=== PATIENT | female | born 1985 | race Caucasian/White ===

== ENCOUNTER 2020-10-11 12:50 | Emergency (ER) | payer OTHER, SELFPAY ==
--- NOTE | ~2020-10-11 | XR_ITS ---
XR lumbar spine 2-3V DATE: 10/11/2020 13:18 INDICATION: Right low back pain. No injury. TECHNIQUE: AP, lateral, coned lateral lumbosacral views COMPARISON: None FINDINGS: The lumbar vertebrae are normally aligned. No fracture or bone destruction or spondylolisth esis. The lumbar pedicles are intact. Lumbar levels as well as appear relatively well preserved. The sacroiliac joints are normal. IMPRESSION: Negative Reviewed, dictated and finalized at location A. IMPRESSION: Negative
[2020-10-11 12:52] VITALS: BP 145/86; PULSE 87; RESP 16; TEMP 37.4; O2SAT 99
--- NOTE | 2020-10-11 13:52 | ED.GENADULT ---
HPI - General Adult General Chief complaint: Back Pain/Injury Stated complaint: back pain Time Seen by Provider: 10/11/20 13:20 Source: patient and RN notes reviewed Mode of arrival: ambulatory Limitations: no limitations History of Present Illness HPI narrative: Patient a 35-year-old female who presents with lower back pain that began after lifting an object and feeling a strain in the lower back patient has had persistent pain for over a day does not take anything for symptoms presents in no distress does appear uncomfortable denies any recent illness or other complaints and is otherwise in the room in no distress upon arrival denies similar occurrence in the past Related Data Allergies Allergy/AdvReac Type Severity Reaction Status Date / Time No Known Allergies Allergy Verified 10/11/20 13:08 Review of Systems Review of Systems: All systems reviewed & are unremarkable except as noted in HPI and below PMFSH Social History Social History (Updated 10/11/20 @ 13:53 by Octaviano Christy PA-C) Smoking status: Current every day smoker Exam Narrative: Exam Narrative: GENERAL: Well-appearing, well-nourished, and in no acute distress. HEAD: Normocephalic, atraumatic. EYES: PERRLA and EOMI. ENT: Nares clear, no rhinorrhea or epistaxis. Mucous membranes moist. CHEST: Clear to auscultation. No respiratory distress. No wheezes rales or rhonchi HEART: Regular rate and rhythm. No murmur heard. Normal peripheral pulses. ABDOMEN: Soft, nontender, nondistended EXTREMITIES: Normal range of motion. No edema. Lower lumbar tenderness to palpation no deformities noted SKIN: Warm, dry, no rash. NEURO: No focal deficits. Alert and oriented x3. Cranial nerves II through XII grossly intact PSYCH: Normal mood and affect. Course Course Emergency Course: Patient in the room no distress will be treated with medications with outpatient follow-up for her low back pain no concerning findings on evaluation given a shot of Toradol prior to discharge Vital Signs Vital signs: Vital Signs Temperature 99.3 F 10/11/20 12:52 Pulse Rate 87 10/11/20 12:52 Respiratory Rate 16 10/11/20 12:52 Blood Pressure 145/86 H 10/11/20 12:52 Pulse Oximetry 99 10/11/20 12:52 Temperature 99.3 F 10/11/20 12:52 Pulse Rate 87 10/11/20 12:52 Respiratory Rate 16 10/11/20 12:52 Blood Pressure 145/86 H 10/11/20 12:52 Pulse Oximetry 99 10/11/20 12:52 Medical Decision Making MDM Narrative Medical decision making narrative: Patients pain is positional in nature and localized to back without signs of cord compression or cauda equina based on neurological exam, skeletal exam and history. No fever or other significant factors to suggest osteomyelitis or spinal epidural abscess. No symptoms or signs to suggest pain is referred from abdominal or / cardiopulmonary sources. No pulsatile masses noted on exam. Patient ambulates with steady gait and is stable for outpatient management given case findings. Vital Signs Vital Signs: Vital Signs Temperature 99.3 F 10/11/20 12:52 Pulse Rate 87 10/11/20 12:52 Respiratory Rate 16 10/11/20 12:52 Blood Pressure 145/86 H 10/11/20 12:52 Pulse Oximetry 99 10/11/20 12:52 Temperature 99.3 F 10/11/20 12:52 Pulse Rate 87 10/11/20 12:52 Respiratory Rate 16 10/11/20 12:52 Blood Pressure 145/86 H 10/11/20 12:52 Pulse Oximetry 99 10/11/20 12:52 Imaging Data Radiologist's impression: ITS Impressions Lumbar Spine X-Ray 10/11/20 13:21 IMPRESSION: Negative Discharge Plan Discharge Clinical Impression: Strain of lumbar region Patient Disposition: Home, Self-Care Condition: Stable Instructions: Antibiotic Form, Acute Low Back Pain (ED) Additional Instructions: Medications as needed and prescribed. Limit lifting and bending. You may apply heat or cold to the area as needed. Follow up with your doctor for further care in the next 7 to
[2020-10-11] MEDS: KETOROLAC (*BKC) 60 MG/2 ML VIAL IM (13:56)
== END 2020-10-11 14:26 | disposition home or self-care (01) ==
PROVIDERS: Emergency Provider Emergency Medicine; PCP Family Medicine
DX: S39.012A Strain of muscle, fascia and tendon of lower back, initial encounter (principal); F17.200 Nicotine dependence, unspecified, uncomplicated; X50.0XXA Overexertion from strenuous movement or load, initial encounter
CPT/HCPCS: 72100; 96372; 99283; J1885

== ENCOUNTER 2020-11-30 11:34 | Emergency (ER) | payer OTHER, SELFPAY ==
--- NOTE | ~2020-11-30 | XR_ITS ---
EXAMINATION: XR chest 2V DATE: 11/30/2020 14:37 INDICATION: Dizziness TECHNIQUE: Frontal and lateral views of the chest are obtained COMPARISON: 10/01/2008 FINDINGS: The lungs are free of acute opacities. There is no pleural effusion or pneumothorax. The ca rdiomediastinal silhouette is normal. The visualized bones and soft tissues are unremarkable. IMPRESSION: 1. No acute cardiopulmonary abnormality. Reviewed, dictated and finalized at location B.
--- NOTE | ~2020-11-30 | CT_ITS ---
EXAMINATION: CT brain wo con EXAM DATE: 11/30/2020 16:34 INDICATION: Dizziness for one day. Vertigo. TECHNIQUE: Spiral CT of the head was performed without contrast. Axial, coronal and sagittal images were reviewed. The dose-length product (DLP) for this examination was 605.33 mGy-cm. The exposure w as tailored according to patient size, and iterative reconstruction (ASIR) was used as additional dos e reduction technique. There is no prior study for comparison. FINDINGS: There is no acute intraparenchymal hemorrhage. No evidence of intraparenchymal brain mass lesion. No evidence of acute infarction. There is no mass effect or midline shift. The ventricles are normal in size. There are no extra-axial collections. There are no acute calvarial fractures. T he orbits are unremarkable. Soft tissue is unremarkable. The visualized sinuses and mastoid air waylon ls are well aerated. IMPRESSION: 1. Normal head CT examination. Reviewed, dictated and finalized at location A.
[2020-11-30 12:08] VITALS: BP 143/97; PULSE 59; RESP 16; TEMP 36.6; O2SAT 100
--- NOTE | 2020-11-30 14:30 | ECG_ITS ---
Measurements Intervals Halls Rate: 56 P: 59 IL: 133 QRS: 74 QRSD: 86 T: 59 QT: 405 QTc: 393 Interpretive Statements SINUS BRADYCARDIA BORDERLINE ECG Electronically Signed On 11-30-2020 19:04:50 CDT by Tye Bermeo D.O.
[2020-11-30 14:42] VITALS: BP 128/84; PULSE 60; RESP 18; TEMP 36.4; O2SAT 100
--- NOTE | 2020-11-30 14:49 | PC.NURSE ---
Pt has had her tubes tied
[2020-11-30 14:56] LABS: Basophils Percent Auto 0.3 % (0.2-1.2); Eosinophils Percent Auto 0.7 % (0-4.4); Hematocrit 42.8 % (37.0-47.0); Immature Granulocyte Absolute 0.02 K/mm3 (0.00-0.031); Immature Granulocyte Percent A 0.3 % (0-0.5); Lymphocytes Absolute Auto 1.27 K/mm3 (0.9-3.2); Lymphocytes Percent Auto 20.7 % (18.3-44.2); Mean Corpuscular HGB Conc 32.7 g/dl (32-36); Mean Corpuscular Hemoglobin 31.3 pg (26-34); Mean Corpuscular Volume 95.5 fl (80-100); Mean Platelet Volume 10.6 fl (7.4-10.4); Monocytes Absolute Auto 0.3 K/mm3 (0.1-0.6); Monocytes Percent Auto 4.7 % (2.6-8.5); Neutrophils Absolute Auto 4.5 K/mm3 (1.3-6.7); Neutrophils Percent Auto 73.3 % (45.5-73.1); Platelet Count Result 177 k/mm3 (150-375); Red Blood Count 4.48 M/mm3 (4.2-5.4); Red Cell Distribution Width 11.9 % (11.5-14.5); White Blood Count 6.1 K/mm3 (4.5-10.0)
[2020-11-30 15:05] LABS: Anion Gap 4 mmol/L (8-16); Blood Urea Nitrogen 11 mg/dL (7-17); Calcium 9.9 mg/dL (8.4-10.2); Carbon Dioxide 31 mmol/L (22-30); Chloride 103 mmol/L (98-107); Estimated CRCL calculation 84 ml/min; Estimated Glomerular Filt Rate > 60; Glucose 129 mg/dL (65-110); Potassium 4.3 mmol/L (3.4-5.0); Sodium 138 mmol/L (137-145)
[2020-11-30 15:45] VITALS: BP 154/93; PULSE 57; RESP 13; TEMP 36.7; O2SAT 100
[2020-11-30 16:08] VITALS: BP 152/97; BP 154/93; PULSE 59; PULSE 60
[2020-11-30 16:09] VITALS: BP 150/91; PULSE 59
--- NOTE | 2020-11-30 16:19 | ED.DIZZY ---
HPI - Dizziness General Chief Complaint: Dizziness Stated Complaint: dizziness, headache Time Seen by Provider: 11/30/20 15:48 Source: patient Mode of arrival: ambulatory Limitations: no limitations History of Present Illness HPI Narrative: Patient is a 35 years old white female presented to the ED with the dizziness. Patient got out of bed yesterday morning and the room started spinning around associated with nausea. Lasted for few minutes and then resolved. The same episodes occurred this morning but lasted for hours. Currently patient is asymptomatic. Complaining of slight headache. Patient is not vaccinated with COVID-19. She denies any fever, chills, chest pain, shortness of breath, focal deficit. Related Data Allergies Allergy/AdvReac Type Severity Reaction Status Date / Time No Known Allergies Allergy Verified 11/30/20 16:03 Review of Systems Review of Systems: CONSTITUTIONAL: Denies fever, chills, or sweats. EYES: Denies visual changes, redness, or discharge. ENT: Denies rhinorrhea, congestion, sore throat, or otalgia. CARDIOVASCULAR: Denies chest pain, palpitations, or edema. RESPIRATORY: Denies cough or dyspnea. GASTROINTESTINAL: Denies abdominal pain, nausea, vomiting, or diarrhea. GENITOURINARY: Denies dysuria or hematuria. SKIN: Denies rash or itching. MUSCULOSKELETAL: Denies back pain, joint pain, or myalgia. NEUROLOGIC: Denies headache, numbness, or weakness. PSYCHIATRIC: Denies anxiety or depression. PMFSH Social History Social History Smoking status: Current every day smoker Exam Narrative: General appearance: Well-developed, well-nourished Skin: Normal color Head: Normocephalic, nontraumatic Eyes: Clear conjunctiva ENT: Oropharynx normal, ears normal, nose normal Neck: Supple, nontender Chest and respiratory: Airway patent, no respiratory distress, no accessory muscle use Heart: Regular rate/rhythm Abdomen: Soft, nontender, no organomegaly, quiet bowel sounds Vascular: Normal peripheral pulses, normal capillary refill. Musculoskeletal: Normal range of motion, nontender back Neurologic: Alert and oriented ?3, TE[employer]ETING [employer] is normal as tested, no gross motor deficit Course Course Emergency Course: Resolved Vital Signs Vital signs: Vital Signs Temperature 36.6 C 11/30/20 12:08 Pulse Rate 59 L 11/30/20 12:08 Respiratory Rate 16 11/30/20 12:08 Blood Pressure 143/97 H 11/30/20 12:08 Pulse Oximetry 100 11/30/20 12:08 Temperature 36.7 C 11/30/20 15:45 Pulse Rate 59 L 11/30/20 16:09 Respiratory Rate 13 11/30/20 15:45 Blood Pressure 150/91 H 11/30/20 16:09 Pulse Oximetry 100 11/30/20 15:45 MDM - Dizziness MDM Narrative Medical decision making narrative: Benign positional vertigo is my concern. Labs, CT head ordered. Currently patient is asymptomatic. Work-up showed no significant findings. Patient will be discharged on Antivert and Zofran. Also to be off work for the next 48 hours. Differential Diagnosis Differential diagnosis: Likely benign paroxysmal positional vertigo and cerebrovascular accident Lab Data Result diagrams: 11/30/20 14:41 11/30/20 14:41 Labs: Lab Results 11/30/20 11/30/20 Range/Units 14:41 14:41 WBC 6.1 (4.5-10.0) K/mm3 RBC 4.48 (4.2-5.4) M/mm3 Hgb 14.0 (12.0-15.0) g/dL Hct 42.8 (37.0-47.0) % MCV 95.5 (80-100) fl MCH 31.3 (26-34) pg MCHC 32.7 (32-36) g/dl RDW 11.9 (11.5-14.5) % Plt Count 177 (150-375) k/mm3 MPV 10.6 H (7.4-10.4) fl Immature Gran % (Auto) 0.3 (0-0.5) % Neut % (Auto) 73.3 H (45.5-73.1) % Lymph % (Auto) 20.7 (18.3-
[2020-11-30 17:43] LABS: Alanine Aminotransferase 10 U/L (4-35); Albumin Level 4.3 g/dL (3.5-5.1); Alkaline Phosphatase 49 U/L (38-126); Aspartate Amino Transferase 29 U/L (14-36); Bilirubin,Total 0.6 mg/dL (0.2-1.3)
[2020-11-30] MEDS: ONDANSETRON HCL ODT 4 MG TABLET PO (17:45)
[2020-11-30] MEDS: MECLIZINE HCL 25 MG TABLET PO (17:48)
[2020-11-30 17:54] VITALS: BP 139/87; PULSE 57; RESP 16; O2SAT 100
[2020-11-30] MEDS: KETOROLAC (*BKC) 60 MG/2 ML VIAL IM (17:54)
== END 2020-11-30 17:55 | disposition home or self-care (01) ==
PROVIDERS: Physician Assistant; Emergency Provider Emergency Medicine; PCP Family Medicine
DX: H81.10 Benign paroxysmal vertigo, unspecified ear (principal); F17.200 Nicotine dependence, unspecified, uncomplicated; R00.1 Bradycardia, unspecified
CPT/HCPCS: 36415; 70450; 71046; 80048; 80076; 85025; 93005; 96372; 99284; A9270; J1885

== ENCOUNTER 2020-12-10 08:39 | Emergency (ER) | payer OTHER, SELFPAY ==
[2020-12-10 08:54] VITALS: BP 114/82; PULSE 71; RESP 18; TEMP 37; O2SAT 100
--- NOTE | 2020-12-10 09:19 | ED.FEMALEGU ---
HPI - Female Genitourinary General Chief complaint: Urogenital-Female Stated complaint: UTI Source: patient, RN notes reviewed and old records reviewed Mode of arrival: ambulatory Limitations: no limitations History of Present Illness HPI Narrative: 35-year-old female who presents to [facility] with complaints of urinary burning, pain, frequency of urination, for the past 3 days. Patient reports that she has noted some blood when she wipes a couple of times since symptoms started. Patient has no fevers, chills, or sweats or any nausea or vomiting, denies any flank pain, but has some suprapubic tenderness.Patient denies any vaginal discharge or itching or any concern for STD exposure. MD elicited complaint: dysuria Related Data Allergies Allergy/AdvReac Type Severity Reaction Status Date / Time No Known Allergies Allergy Verified 11/30/20 16:03 Review of Systems Review of Systems: CONSTITUTIONAL: Denies fever, chills, or sweats. EYES: Denies visual changes, redness, or discharge. ENT: Denies rhinorrhea, congestion, sore throat, or otalgia. CARDIOVASCULAR: Denies chest pain, palpitations, or edema. RESPIRATORY: Denies cough or dyspnea. GASTROINTESTINAL: suprapubic abdominal pain,no nausea, vomiting, or diarrhea. GENITOURINARY: Positive for dysuria or hematuria. SKIN: Denies rash or itching. MUSCULOSKELETAL: Denies back pain, joint pain, or myalgia. NEUROLOGIC: Denies headache, numbness, or weakness. PSYCHIATRIC: Denies anxiety or depression. All systems reviewed & are unremarkable except as noted in HPI and below PMFSH Past Medical History Medical History (Updated 12/11/20 @ 09:46 by Sana Winston NP) UTI (urinary tract infection) Vertigo Surgical History Surgical History (Updated 12/11/20 @ 09:46 by Sana Winston NP) H/O LEEP Previous section Tubal ligation status Family History Family History (Updated 12/11/20 @ 09:45 by Sana Winston NP) Father Polycystic kidney disease Hypertension Grandparent Diabetes mellitus FH: lung cancer Mother A-fib Social History Social History (Updated 12/10/20 @ 09:38 by Sana Winston NP) Smoking status: Current every day smoker Alcohol intake: never Substance use: never Living arrangements: with family Gender identity (if verbalized by the patient): Female Comments At time of signature, agree with nursing past medical, surgical, social and family history. There is no relevant family history pertinent to the presenting complaint Exam Narrative: GENERAL: Well-appearing, well-nourished, and in no acute distress. HEAD: Normocephalic, atraumatic. EYES: PERRLA and EOMI. ENT: Nares clear, no rhinorrhea or epistaxis. Mucous membranes moist.TM's normal throat pink with no lesions or exudates,no tonsil enlargement. NECK: Supple.no lymphadenopathy CHEST: Clear to auscultation. No respiratory distress.SAO2 100% on room air HEART: Regular rate and rhythm. No murmur heard. Normal peripheral pulses. ABDOMEN: Soft, tender suprapubic, nondistended, normal active bowel sounds.No CVA tenderness EXTREMITIES: Normal range of motion. No edema. SKIN: Warm, dry, no rash. NEURO: No focal deficits. Alert and oriented x3. Course Vital Signs Vital signs: Vital Signs Temperature 37.0 C 12/10/20 08:54 Pulse Rate 71 12/10/20 08:54 Respiratory Rate 18 12/10/20 08:54 Blood Pressure 114/82 12/10/20 08:54 Pulse Oximetry 100 12/10/20 08:54 Temperature 37.0 C 12/10/20 08:54 Pulse Rate 71 12/10/20 08:54 Respiratory Rate 18 12/10/20 08:54 Blood Pressure 114/82 12/10/20 08:54 Pulse Oximetry 100 12/10/20 08:54 MDM - Female Genitourinary Differential Diagnosis Differential diagnosis: Likely urinary tract infection, cervicitis, vaginitis and cystitis Medical Records Attestation: I reviewed the patient's medical records. Lab Data Attestation: I reviewed the patient's lab results. Lab results narrative: Urine dip: Glu
== END 2020-12-10 09:35 | disposition home or self-care (01) ==
PROVIDERS: Emergency Provider Registered Nurse; PCP Family Medicine
DX: N39.0 Urinary tract infection, site not specified (principal); F17.200 Nicotine dependence, unspecified, uncomplicated
CPT/HCPCS: 81003; 87077; 87086; 87088; 87186; 99213; G0463

== ENCOUNTER 2021-11-05 09:12 | Emergency (ER) | payer OTHER, SELFPAY ==
--- NOTE | 2021-11-05 09:15 | ED.FEMALEGU ---
HPI - Female Genitourinary General Chief complaint: Urogenital-Female Stated complaint: UTI Time Seen by Provider: 11/05/21 09:35 Source: patient, RN notes reviewed and old records reviewed Mode of arrival: ambulatory Limitations: no limitations History of Present Illness HPI Narrative: 36-year-old female Zentz to the [facility] with complaints of urgency, burning, pressure and foul-smelling urine since , 5 days. Woke up today her symptoms were worse. Denies chest pain or abdominal pain. Denies fevers. No CVA tenderness. Denies , tubal ligation MD elicited complaint: UTI Related Data Allergies Allergy/AdvReac Type Severity Reaction Status Date / Time No Known Allergies Allergy Verified 11/05/21 09:29 Review of Systems Review of Systems: All systems reviewed & are unremarkable except as noted in HPI and below Constitutional: Constitutional: Reports no additional constitutional complaints, Denies chills and Denies fatigue Eyes: Eyes: Reports no additional eye complaints ENT: Reports system reviewed and no additional complaints, except as documented Cardiovascular: Cardiovascular: Reports no additional cardiovascular complaints Respiratory: Respiratory: Reports no additional respiratory complaints Gastrointestinal: Gastrointestinal: Reports no additional gastrointestinal complaints, Denies abdominal pain, Denies diarrhea, Denies nausea and Denies vomiting Genitourinary: Genitourinary: Reports as per HPI (Urinary frequency), Reports hematuria, Reports dysuria, Denies flank pain and Denies vaginal discharge Musculoskeletal: Musculoskeletal: Reports no additional musculoskeletal complaints and Denies back pain Integumentary/Breasts: Skin/Breast: Reports system reviewed and no additional complaints, except as docu Neurologic: Reports system reviewed and no additional complaints, except as documented Psychiatric: Psychiatric: Reports no additional psychiatric complaints Endocrine: Endocrine: Denies fatigue Allergic/Immunologic: Allergic/Immunologic: Reports no additional allergic/immunologic complaints PMFSH Past Medical History Medical History UTI (urinary tract infection) Vertigo Surgical History Surgical History H/O LEEP Previous section Tubal ligation status Family History Family History Father Polycystic kidney disease Hypertension Grandparent Diabetes mellitus FH: lung cancer Mother A-fib Social History Social History Smoking status: Current every day smoker Alcohol intake: never Substance use: never Gender identity (if verbalized by the patient): Female Comments At the time of my signature, I reviewed and agree with the nursing past medical, surgical, social, and family history. There is no relevant family history pertinent to the patient complaint. Exam Const: General: healthy appearing, no acute distress and alert Nutritional Appearance: well nourished Orientation/consciousness: patient oriented x3 Limitations: no limitations HENMT: Head: normal to inspection Eyes: Conjunctivae: conjunctivae normal Pupils: Equal, round and reactive pupils present Neck: Neck: normal visual inspection, no lymphadenopathy and no meningeal signs Chest: Chest palpation & inspection: normal inspection of the chest and abnormal inspection of the chest Resp: Effort & Inspection: normal respiratory effort Auscultation: clear to auscultation bilaterally Cardio: Rate: regular rate Rhythm: regular rhythm GI: GI Palp: Yes Soft to palpation and No Tenderness to palpation present (GI) : General: Yes no CVA tenderness Back/Spine/Pelvis: Back: no CVA tenderness Skin: General skin exam: normal color Rashes: no rashes Wounds: no wounds Neuro:
[2021-11-05 09:21] VITALS: BP 137/86; PULSE 70; RESP 16; TEMP 37.5; O2SAT 100
== END 2021-11-05 09:55 | disposition home or self-care (01) ==
PROVIDERS: Emergency Provider Nurse Practitioner
DX: N30.00 Acute cystitis without hematuria (principal); F17.200 Nicotine dependence, unspecified, uncomplicated
CPT/HCPCS: 81003; 87077; 87086; 87186; 99213; G0463

== ENCOUNTER 2022-05-13 09:55 | Emergency (ER) | payer OTHER, SELFPAY ==
[2022-05-13 10:26] VITALS: BP 118/81; PULSE 86; RESP 16; TEMP 36.9; O2SAT 99
--- NOTE | 2022-05-13 10:37 | ED.URI ---
HPI - URI/Sore Throat General Chief Complaint: Upper Respiratory Infection Stated Complaint: body aches/weakness Time Seen by Provider: 05/13/22 10:37 Source: patient Mode of arrival: ambulatory Limitations: no limitations History of Present Illness HPI Narrative: Female presents with complaint of fatigue, hot and cold sweats, nausea and vomiting for the last 2-3 days. Reports headache and body ache. Reports that her children are also sick but that they have different symptoms. Afebrile. No vomiting today. States just do not feel well . All systems reviewed and negative except as noted above. Related Data Home Medications Medication Instructions Recorded Confirmed No Home Medications 05/13/22 05/13/22 Allergies Allergy/AdvReac Type Severity Reaction Status Date / Time No Known Allergies Allergy Verified 11/05/21 09:29 Review of Systems Review of Systems: CONSTITUTIONAL: Denies fever, chills, or sweats. EYES: Denies visual changes, redness, or discharge. ENT: Denies rhinorrhea, congestion, sore throat, or otalgia. CARDIOVASCULAR: Denies chest pain, palpitations, or edema. RESPIRATORY: Denies cough or dyspnea. GASTROINTESTINAL: Denies abdominal pain . Reports nausea, vomiting, or diarrhea. GENITOURINARY: Denies dysuria or hematuria. SKIN: Denies rash or itching. MUSCULOSKELETAL: Denies back pain, joint pain. Reports myalgia. NEUROLOGIC: reports headache. Denies numbness, or weakness. PSYCHIATRIC: Denies anxiety or depression. All other systems reviewed are negative, except as documented in HPI. FOR[facility]LY [facility], [facility] Past Medical History Medical History UTI (urinary tract infection) Vertigo Surgical History Surgical History H/O LEEP Previous section Tubal ligation status Family History Family History Father Polycystic kidney disease Hypertension Grandparent Diabetes mellitus FH: lung cancer Mother A-fib Social History Social History Smoking status: Current every day smoker Alcohol intake: never Substance use: never Living arrangements: with family Gender identity (if verbalized by the patient): Female Comments At time of signature, agree with nursing past medical, surgical, social and family history. There is no relevant family history pertinent to the presenting complaint. Exam Narrative: GENERAL: This is a well-nourished, well-developed patient, in no apparent distress. HEAD: normocephalic, atraumatic. EYES: PERRL. Sclera clear/white. Vision is grossly intact. EARS: External ears normal, auditory canals clear and without drainage, TMs normal without perforation. Hearing grossly intact. NOSE: External nose normal with no obvious nasal discharge, nares without redness, no rhinorrhea. THROAT: Mucous membranes moist, posterior pharynx clear. NECK: Neck supple, non-tender without lymphadenopathy, masses or thyromegaly. CARDIOVASCULAR: Regular rate and rhythm without murmurs, gallops, or rubs. RESPIRATORY: Clear to auscultation. Breath sounds equal bilaterally. No wheezes, rales, or rhonchi. GASTROINTESTINAL: Abdomen soft, non-tender, nondistended. Bowel sounds are active. No hepato-splenomegaly, or palpable masses. No guarding. SKIN: warm, Dry, intact with no suspicious lesions or rash, good texture and turgor. NEURO: awake, alert, and oriented to person, place and time. There were no obvious focal neurologic abnormalities. EXTREMITIES: No joint tenderness, effusion, or edema noted. Course Course Level of Care: Express Care Visit Vital Signs Vital signs: Vital Signs Temperature 36.9 C 05/13/22 10:26 Pulse Rate 86 05/13/22 10:26 Respiratory Rate 16 05/13/22 10:26 Blood Pressure 118/81 05/13/22 10:26 Pulse Oximetry 99 05/13/22 10:26 Oxygen
== END 2022-05-13 11:50 | disposition home or self-care (01) ==
PROVIDERS: Emergency Provider Nurse Practitioner Family
DX: B34.9 Viral infection, unspecified (principal); Z20.822 Contact with and (suspected) exposure to COVID-19; F17.200 Nicotine dependence, unspecified, uncomplicated
CPT/HCPCS: 87426; 87804; 99213; C9803; G0463

== ENCOUNTER 2024-01-29 16:06 | Emergency (ER) | payer OTHER, SELFPAY ==
[2024-01-29 16:13] VITALS: BP 130/81; PULSE 70; RESP 19; TEMP 37.2; O2SAT 100
--- NOTE | 2024-01-29 16:27 | ED_ITS ---
HPI - Female Genitourinary General Chief complaint: Urogenital-Female Stated complaint: UTI Time Seen by Provider: 01/29/24 16:27 Source: patient Mode of arrival: ambulatory Limitations: no limitations History of Present Illness HPI Narrative: 38-year-old female presents with complaint of urinary frequency, urgency, dysuria for 2-3 days. No abdominal or back pain. Denies nausea vomiting diarrhea. Afebrile. All systems reviewed and negative except as noted above. Related Data Home Medications Medication Instructions Recorded Confirmed fluoxetine 10 mg capsule 10 mg PO DAILY 01/29/24 01/29/24 Allergies Allergy/AdvReac Type Severity Reaction Status Date / Time No Known Allergies Allergy Verified 01/29/24 16:08 Review of Systems Review of Systems: CONSTITUTIONAL: Denies fever, chills, or sweats. EYES: Denies visual changes, redness, or discharge. ENT: Denies rhinorrhea, congestion, sore throat, or otalgia. CARDIOVASCULAR: Denies chest pain, palpitations, or edema. RESPIRATORY: Denies cough or dyspnea. GASTROINTESTINAL: Denies abdominal pain, nausea, vomiting, or diarrhea. GENITOURINARY: Reports dysuria, frequency, urgency. Denies hematuria. SKIN: Denies rash or itching. MUSCULOSKELETAL: Denies back pain, joint pain, or myalgia. NEUROLOGIC: Denies headache, numbness, or weakness. PSYCHIATRIC: Denies anxiety or depression. All other systems reviewed are negative, except as documented in HPI. [facility] Past Medical History Medical History UTI (urinary tract infection) Vertigo Surgical History Surgical History H/O LEEP Previous section Tubal ligation status Family History Family History Father Polycystic kidney disease Hypertension Grandparent Diabetes mellitus FH: lung cancer Mother A-fib Social History Social History Smoking status: Current every day smoker Alcohol intake: never Substance use: never Living arrangements: with family Gender identity (if verbalized by the patient): Female Comments At time of signature, agree with nursing past medical, surgical, social and family history. There is no relevant family history pertinent to the presenting complaint. Exam Narrative: GENERAL: This is a well-nourished, well-developed patient, in no apparent distress. HEAD: normocephalic, atraumatic. EYES: PERRL. Sclera clear/white. Vision is grossly intact. EARS: External ears normal NOSE: External nose normal NECK: Neck supple, non-tender without lymphadenopathy, masses or thyromegaly. CARDIOVASCULAR: Regular rate and rhythm without murmurs, gallops, or rubs. RESPIRATORY: Clear to auscultation. Breath sounds equal bilaterally. No wheezes, rales, or rhonchi. SKIN: warm, Dry, intact with no suspicious lesions or rash, good texture and turgor. NEURO: awake, alert, and oriented to person, place and time. There were no obvious focal neurologic abnormalities. EXTREMITIES: No joint tenderness, effusion, or edema noted. Course Course Level of Care: Express Care Visit Vital Signs Vital signs: Vital Signs Temperature 37.2 C 01/29/24 16:13 Pulse Rate 70 01/29/24 16:13 Respiratory Rate 19 01/29/24 16:13 Blood Pressure 130/81 01/29/24 16:13 Pulse Oximetry 100 01/29/24 16:13 Oxygen Delivery Room Air 01/29/24 16:13 Temperature 37.2 C 01/29/24 16:13 Pulse Rate 70 01/29/24 16:13 Respiratory Rate 19 01/29/24 16:13 Blood Pressure 130/81 01/29/24 16:13 Pulse Oximetry 100 01/29/24 16:13 Oxygen Delivery Room Air 01/29/24 16:13 reviewed MDM - Female Genitourinary MDM Narrative Medical decision making narrative: urinalysis 2+ leukocytes. Will treat patient with Antibiotic for urinary tract infection. urine culture ordered. Patient well-appearing, nontoxic. Patient is aware of diagnosis, understands and agrees to treatment plan. Anticipatory guidance given. Patient agrees to follow-up as directed and is aware of reasons to seek care at the emergency department. Portions of this record may have been created with voice recognition software Differential Diagnosis Differential diagnosis: Likely urinary tract infection Lab Data Labs: Lab Results 01/29/24 Range/Units 16:13 POC Urine Color Yellow POC Urine Clarity Cloudy POC Urine pH 7.0 POC Ur Specif [place] 1.025 POC Urine Protein Negative (Negative) POC Ur Glucose (UA) Negative (Negative) POC Urine Ketones Negative (Negative) POC Urine Blood 2+ (Negative) POC Urine Nitrite Negative (Negative) POC Urine Bilirubin Negative (Negative) POC Urine Urobilinogen 0.2 POC U Leukocyte Esteras 2+ (Negative) Discharge Plan Discharge Clinical Impression: Urinary tract infection Patient Disposition: Home, Self-Care Condition: Stable Instructions: Antibiotic Form, Urinary Tract Infection in Women (DC) Additional Instructions: Take antibiotic as prescribed until gone. Take Pyridium as needed to treat urinary symptoms. Drink at least 64 oz of water a day. See your doctor if symptoms are not improving. Prescriptions: New amoxicillin-pot clavulanate [Augmentin] 500-125 mg tablet 1 tablet PO BID 5 Days Qty: 10 0RF phenazopyridine [Pyridium] 200 mg tablet 200 mg PO TID PRN (Reason: pain) 3 Days Qty: 10 0RF No Action fluoxetine 10 mg capsule 10 mg PO DAILY Follow-up/Referrals: Vince,CEDRIC Canales [Primary Care Provider] - Time of Disposition: 16:36
[2024-01-29 16:28] LABS: EDUAAPPEAR Cloudy; EDUABILI Negative (Negative); EDUABLOOD 2+ (Negative); EDUACOLOR1 Yellow; EDUAGLUCOSE Negative (Negative); EDUAKETONE Negative (Negative); EDUALEUKO 2+ (Negative); EDUANITRATE Negative (Negative); EDUAPROTEIN Negative (Negative); EDUASPGRAVITY 1.025; EDUAUROBILI 0.2
== END 2024-01-29 16:40 | disposition home or self-care (01) ==
PROVIDERS: Emergency Provider Nurse Practitioner Family; PCP Physician Assistant
DX: N39.0 Urinary tract infection, site not specified (principal); B96.20 Unspecified Escherichia coli [E. coli] as the cause of diseases classified elsewhere; F17.200 Nicotine dependence, unspecified, uncomplicated
CPT/HCPCS: 81003; 87086; 87186; 99213; G0463

== ENCOUNTER 2024-11-13 12:22 | Emergency (ER) | payer OTHER, SELFPAY ==
[2024-11-13 13:23] VITALS: BP 163/85; PULSE 60; RESP 18; TEMP 36.6; O2SAT 100
[2024-11-13 14:05] LABS: EDSTREPNEGPOS1 Negative (Negative)
--- NOTE | 2024-11-13 14:30 | ED.URI ---
HPI - URI/Sore Throat General Chief Complaint: Upper Respiratory Infection Stated Complaint: sore throat Time Seen by Provider: 11/13/24 13:46 Source: patient and RN notes reviewed Mode of arrival: ambulatory Limitations: no limitations History of Present Illness HPI Narrative: Patient presents today complaining of right sided sore throat since yesterday, worse today. Denies any additional symptoms to include fever, shortness of breath, difficulty swallowing. Increased pain with swallowing. She has tried no medication for her symptoms prior to arrival. Related Data Home Medications ?Medication ?Instructions ?Recorded ?Confirmed ?Last Taken ?Type fluoxetine 10 mg capsule 10 mg PO DAILY 01/29/24 01/29/24 Unknown History Allergies Allergy/AdvReac Type Severity Reaction Status Date / Time No Known Allergies Allergy Verified 01/29/24 16:08 [facility] Past Medical History Medical History UTI (urinary tract infection) Vertigo Surgical History Surgical History (Reviewed 11/13/24 @ 14:33 by Jaclyn Lynn, [facility] [place], ) Tubal ligation status H/O LEEP Previous section Family History Family History (Reviewed 11/13/24 @ 14:33 by Jaclyn Lynn, [facility] [place], ) Father Polycystic kidney disease Hypertension Grandparent Diabetes mellitus FH: lung cancer Mother A-fib Social History Social History (Reviewed 11/13/24 @ 14:33 by Jaclyn Lynn, [facility], [place], ) Smoking status: Current every day smoker Alcohol intake: never Substance use: never Living arrangements: with family Gender identity (if verbalized by the patient): Female Comments At time of signature, I have reviewed and agree with nursing past medical, surgical, social and family history unless otherwise noted. Please see nursing chart for further information. There is no relevant family history pertinent to the presenting complaint Exam Narrative: GENERAL: Well-appearing, well-nourished, and in no acute distress. HEAD: Normocephalic, atraumatic. EYES: EOMI. No redness or drainage. Conjunctivae normal. ENT: Mucous membranes pink and moist. Nares clear. No rhinorrhea. TMs normal bilaterally. Throat without edema or erythema. No exudate. Tonsils2+ bilaterally. Right tonsils has 2 small, round tonsils stones. . Uvula midline. NECK: Normal AROM. Supple. No lymphadenopathy. CHEST: No respiratory distress. Clear to auscultation. HEART: Regular rate and rhythm. No murmur appreciated. EXTREMITIES: Normal range of motion. No edema. SKIN: Warm, dry, no rash. Capillary refill normal. Normal skin turgor. NEURO: No focal deficits. Alert and oriented x3. Gait steady. PSYCH: Normal affect. No signs of depression or anxiety. Course Course Level of Care: Express Care Visit Vital Signs Vital signs: Vital Signs Temperature 97.9 F 11/13/24 13:23 Pulse Rate 60 11/13/24 13:23 Respiratory Rate 18 11/13/24 13:23 Blood Pressure 163/85 H 11/13/24 13:23 Pulse Oximetry 100 11/13/24 13:23 Oxygen Delivery Room Air 11/13/24 13:23 Temperature 97.9 F 11/13/24 13:23 Pulse Rate 60 11/13/24 13:23 Respiratory Rate 18 11/13/24 13:23 Blood Pressure 163/85 H 11/13/24 13:23 Pulse Oximetry 100 11/13/24 13:23 Oxygen Delivery Room Air 11/13/24 13:23 Reviewed MDM - URI/Sore Throat MDM Narrative Medical decision making narrative: 39-year-old female presents with sore throat since yesterday that has been worsening since onset. No additional symptoms. No OTC treatment prior to arrival. Upon exam, patient's throat has no erythema or edema. No exudate present. Her right tonsil has 2 round tonsil stones, which is likely the source of her discomfort. Rapid strep negative. Culture pending. Discussed interventions that may help dislodge the stones. Patient agrees with plan. Vital signs stable. Anticipatory guidance given. Differential Diagnosis Differential diagnosis: Likely pharyngitis and other (strep throat, mononucleosis) Lab Data Attestation: I reviewed the patient's lab results. Labs: Lab Results 11/13/24 Range/Units 13:40 POC Grp A Strep Screen Negative (Negative) Critical Care Time Critical Care Time Critical Care Time: No Discharge Plan Discharge Clinical Impression: Tonsil stone Patient Disposition: Home Condition: Stable Additional Instructions: Your strep test is negative today. Your right tonsil seems to have 2 small tonsil stones in it, and this is likely the source of your irritation. You may try to gargle with some salt water to dislodged them. Follow-up with your PCP with any additional concerns. Your blood pressure was elevated above 120/80 today at Urgent Care. This puts you above the threshold for follow up. Please schedule a followup visit with your personal physician as soon as possible, for further evaluation and treatment. Even blood pressure exceeding 120/80 may indicate pre-hypertension. Patient Language: Azeri Prescriptions: No Action fluoxetine 10 mg capsule 10 mg PO DAILY amoxicillin-pot clavulanate [Augmentin] 500-125 mg tablet 1 tablet PO BID 5 Days Qty: 10 0RF phenazopyridine [Pyridium] 200 mg tablet 200 mg PO TID PRN (Reason: pain) 3 Days Qty: 10 0RF Follow-up/Referrals: PHYSICIAN,SURGERY TECH [Primary Care Provider, Internal Medicine] Time of Disposition: 13:54
== END 2024-11-13 14:00 | disposition home or self-care (01) ==
PROVIDERS: Emergency Provider Nurse Practitioner
DX: J35.8 Other chronic diseases of tonsils and adenoids (principal); F17.200 Nicotine dependence, unspecified, uncomplicated
CPT/HCPCS: 87081; 87880; 99213; G0463